=== PATIENT | female | born 1955 | race Caucasian/White ===

== ENCOUNTER 2016-10-17 06:03 | Day surgery (SDC) | payer BC ==
[~2016-10-17 06:03] MED LIST: Buffered Lidocaine 1% SYR 3ML* 3 ML/SYR SYRINGE INTRADERM ONE; Famotidine IV* 10 MG/ML 2 ML (20 mg) IV ONE
[2016-10-17] MEDS ORDERED: Famotidine IV* 10 MG/ML 2 ML (20 mg) ONE (06:47)
[2016-10-17 07:09] LABS: Hematocrit 37 % (35-47); Hemoglobin 12.2 g/dl (12.0-16.0); Mean Corpuscular HGB Conc 33 g/dl (31-36); Mean Corpuscular Hemoglobin 27 pg (27-31); Mean Corpuscular Volume 83 fL (80-97); Mean Platelet Volume 9 um3 (7.4-10.4); Red Blood Count 4.46 10^6/ul (4.0-5.4); Red Cell Distribution Width 15 % (10.5-15); White Blood Count 7.2 10^3/ul (3.5-10.8)
[2016-10-17] MEDS ORDERED: Chloroprocaine 2%* 20 ML VIAL ONE (07:47)
[2016-10-17] MEDS ORDERED: Midazolam* 1 MG/ML 5 ML VIAL (5 MG) ONE (07:48)
[2016-10-17] MEDS ORDERED: fentaNYL* 50 MCG/ML 2 ML VIAL (100 MCG VIAL) ONE (07:48)
[2016-10-17] MEDS ORDERED: Propofol* 10 MG/ML 20 ML BTL IV PUSH ONE (08:27)
[2016-10-17] MEDS ORDERED: Ketorolac INJ* 30 MG/ML 1 ML VIAL ONE (08:27)
[2016-10-17] MEDS ORDERED: Ondansetron INJ* 2 MG/ML VIAL ONE (08:27)
[2016-10-17] MEDS ORDERED: Lidocaine 2% PF * 5 ML VIAL ONE (08:27)
[2016-10-17] MEDS ORDERED: Dexamethasone IV* 4 MG/ML 1 ML (4 MG) ONE (08:27)
[2016-10-17] MEDS ORDERED: Acetaminophen TAB* 325 MG PO PRN (08:57)
[2016-10-17] MEDS ORDERED: DiMENhydriNATE IV* 50 MG/ML VIAL IV PUSH PRN (08:57)
[2016-10-17] MEDS ORDERED: Ibuprofen TAB* 600 MG PO PRN (09:00)
[2016-10-17] MEDS ORDERED: oxyCODONE/Acetamin 5/325 MG* TAB PO PRN (09:00)
--- NOTE | 2016-10-17 10:21 | OP ---
DATE OF OPERATION: 10/17/16 - [facility] DATE OF : 55 SURGEON: Talat Erazo MD ANESTHESIOLOGIST: Dr. Ellsworth ANESTHESIA: Spinal. PRE-OPERATIVE DIAGNOSIS: Postmenopausal bleeding, thickened endometrium. POST-OPERATIVE DIAGNOSIS: Postmenopausal bleeding, thickened endometrium. OPERATIVE PROCEDURE: Exam under anesthesia, dilation hysteroscopy curettage. ESTIMATED BLOOD LOSS: Minimal, less than 20 mL. SPECIMEN: Endometrial curetting. FINDINGS: Anteverted uterus sounds to 9. There was polypoid-appearing tissue protruding from the fundus. Otherwise, atrophic appearing endometrium. No adnexal masses were palpated. However, the exam is limited by habitus. DESCRIPTION OF PROCEDURE: The patient was brought to the operating room and spinal anesthesia was found to be adequate. The patient was prepped and draped in the usual sterile fashion in the dorsal lithotomy position. Time-out was performed. The exam under anesthesia was performed. A weighted speculum was placed in the vagina. The anterior lip of the cervix was visualized and grasped with a single tooth tenaculum. The cervix was gently and easily dilated with graduated Emerson dilators, and the hysteroscope was introduced with the above findings noted. The hysteroscope was removed. Endometrial curettage was performed. The polypoid- appearing tissue was removed and was sent as specimen with the endometrial curettings. The single-tooth tenaculum was removed from the anterior lip of the cervix. Excellent hemostasis was noted. All instruments were removed from the vagina, and the patient was brought to recovery room awake and in stable condition. [id number]/CPS #: [id number] MTDD
[2016-10-17 10:38] VITALS: BP 156/64
== END 2016-10-17 11:08 | disposition home or self-care (01) ==
LOC: OR 06:03
PROVIDERS: ATTEND Obstetrics & Gynecology
DX: N95.0 Postmenopausal bleeding (principal); E11.9 Type 2 diabetes mellitus without complications; K21.9 Gastro-esophageal reflux disease without esophagitis; J45.909 Unspecified asthma, uncomplicated; Z88.5 Allergy status to narcotic agent; I10 Essential (primary) hypertension; M19.90 Unspecified osteoarthritis, unspecified site
CPT/HCPCS: 36415; 85027; 86850; 86900; 86901; 88305; J1100; J1885; J2250; J2400; J2405; J2704; J3010

== ENCOUNTER 2016-12-08 11:46 | Emergency (ER) | payer BC ==
[2016-12-08 12:41] VITALS: BP 169/87
--- NOTE | 2016-12-08 13:00 | UC ---
Federico Dale Matthew, scribed for Jamie Shay MD on 12/08/16 at 1225 . Dizzy HPI HPI Summary: In Room Note: A 61 y/o female presents to with intermittent dizziness since a week ago. She's had constant dizziness since 05:30 this morning, when she awoke; however, she is not currently dizzy. The dizziness is described as the room spinning and causes an unsteady gait. Associated symptoms include headache , sinus discomfort, rhinorrhea, occasional tinnitus and nausea. The patient's dizziness worse with head movement. The patient has never had this dizziness before. 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 She denies abdominal pain. She's had migraines in the past, but states the headache is not similar. The patient's states she's concerned its her blood pressure, diabetes, or sinus discomfort. The patient is able to ambulate in the exam room. No recent car accident. FHx of prostate CA, CHF, and RI. The patient has not been hospitalized. She was last seen in her PCP a month ago. She had a D&C a month ago. Note: 61 y/o female, diabetic type II, primary HTN, GERD presents with c/o of head pressure, dizziness and nausea Nurse's Note: FOR ABOUT A WEEK PT HAS BEEN DIZZY OFF AND ON, PT ALSO HAS BEEN HAVING HEADAHCES AND NAUSEA AND SHE IS CONCERNED IT COULD BE HER BLOOD PRESSURE OR DIABETES OR POSSIBLE SINUS INFECTION. - History Of Current Complaint Chief Complaint: UCGeneralIllness Stated Complaint: DIZZY NAUSEA HEAD PRESSURE Time Seen by Provider: 12/08/16 12:09 Hx Obtained From: Patient ?: No Onset/Duration: Lasting Days, Still Present Timing: Intermittent Episode Lasting Severity Initially: Mild Severity Currently: Mild Pain Intensity: 7 Pain Scale Used: 0-10 Numeric Character: Room Spinning Aggravating Factor(s): Change In Head Position Alleviating Factor(s): Nothing Associated Signs And Symptoms: Positive: Nausea, Tinnitus - occasional, Unsteady Gait. Negative: Visual Changes - Allergies/Home Medications Allergies/Adverse Reactions: Allergies Allergy/AdvReac Type Severity Reaction Status Date / Time Acetaminophen [From Ultracet] Allergy Vomiting Verified 12/08/16 11:57 Tramadol [From Ultracet] Allergy Vomiting Verified 12/08/16 11:57 Codeine AdvReac Intermediate Vomiting Verified 12/08/16 11:57 Hydrocodone AdvReac Intermediate Vomiting Verified 12/08/16 11:57 PMH/Surg Hx/FS Hx/Imm Hx Endocrine History Of: Reports: Diabetes - TYPE 2-ON ORAL MEDICATION FOR Cardiovascular History Of: Reports: Hypertension - ON MEDICATION FOR Respiratory History Of: Reports: Asthma - YHx OF, NO MEDS Neurological History Of: Reports: Migraine - INTERMITENT, NONE IN RECENT YEARS - Surgical History Surgical History: None Surgery Procedure, Year, and Place: 1999 deviated septum [facility]. 2013 LT & RT HANDS , TRIGGER FINGER [facility]. 2012 LT & RT CARPAL TUNNEL RELEASE [facility]. 1999 RIGHT SHOULDER REPAIR [facility] - Social History Alcohol Use: None Substance Use Type: None Smoking Status (MU): Former Smoker Type: Cigarettes Amount Used/How Often: 1/2 PPD X 3 YEARS Have You Smoked in the Last Year: No When Did the Patient Quit Smoking/Using Tobacco: 35 YEARS AGO Review of Systems Constitutional: Negative Skin: Negative Eyes: Negative ENT: Other - sinus discomfort; occasional tinnitus Respiratory: Negative Cardiovascular: Negative Gastrointestinal: Other - nausea Genitourinary: Negative Motor: Negative Neurovascular: Negative Musculoskeletal: Negative Neurological: Headache, Other - Dizziness - described as the room spinning Psychological: Negative All Other Systems Reviewed And Are Negative: Yes Physical Exam Triage Information Reviewed: Yes Appearance: No Pain Distress, Well-Nourished Vital Signs: Initial Vital Signs Temp 98.6 F 12/08/16 11:51 Pulse 84 12/08/16 11:51 Resp 20 12/08/16 11:51 BP 173/82 12/08/16 11:51 Pulse Ox 98 12/08/16 11:51 Vital Signs Reviewed: Yes Eyes: Positive: Other: - 2-3 BEATS OF LATERAL NYSTAGMUS BILATERALLY, PERRL, EMOI ENT: Positive: Hearing grossly normal, Pharynx normal, TMs normal. Negative: Muffled/hoarse voice Neck: Positive: Supple, Nontender, Other: - No Bruits Respiratory: Positive: Chest non-tender, Lungs clear, Normal breath sounds Cardiovascular: Positive: RRR, No Murmur Abdomen Description: Positive: Nontender, No Organomegaly, Soft Musculoskeletal: Positive: Strength Intact, ROM Intact Neurological Exam: Normal - Cranial nerves II-XII intact; normal gait, heel to toe normal, negative romberg test; no field cut; no visual complaints Neurological: Positive: Alert Psychological: Positive: Age Appropriate Behavior Skin Exam: Normal Dizzy Course/Dx - Course Course Of Treatment: Although this patient does have diabetes and HTN, the cause of her dizziness appears to be vertigo rather than a cardiovascular event. The vertigo may have been instigated by sinus infection and congestion. Her physical exam is remarkable for a normal neurological exam and the instigation of her dizziness with rotation of the head. She has no ear complaints and does not report any SOB or chest pain. Orthostatic measurements showed non-drop in blood pressure and minimal increase in pulse rate from supine to standing. Her BG was not obtainable. I will start the patient on medication for her sinuses and for vertigo. She will follow-up with her physician with a call tomorrow. DOCUMENTATION NOTES: Medications have been included in the original chart and reviewed. Elevated BP but has current hypertension diagnosis - Differential Dx/Diagnosis Differential Diagnosis/HQI/PQRI: Benign Paroxysmal Positional Vertigo, Dysrhythmia, Labyrinthitis, Transient Ischemic Attack Provider Diagnoses: 1. vertigo. 2. sinus congestion/infection. 3. HTN, DM by hx. Discharge - Discharge Plan Condition: Stable Disposition: HOME Prescriptions: Azithromycin TAB* [Zithromax TAB*] 250 mg PO DAILY #6 tab Meclizine HCl [Meclizine 25] 25 mg PO QID #12 tab MDD 4 a day Patient Education Materials: Sinusitis (ED), Benign Paroxysmal Positional Vertigo (ED) Referrals: Joycelyn Orozco MD [Primary Care Provider] - Additional Instructions: WE DISCUSSED: You have vertigo. You have sinusitis. Take Zithromax and see instructions below. Take meclizine for vertigo. This may cause drowsiness. Call you doctor tomorrow. COUGH, CONGESTION of CHEST, SINUSES OR EARS: The most important goal is to liquefy all the phlegm and get it out of your head and chest. Any illness causing cough, congestion, sore throat or sinus discomfort can be helped by doing the following: STAND UNDER SHOWER STREAM TO LOOSEN SECRETIONS. STAY AWAY FROM ANY SMOKE OR IRRITANTS. WHAT ELSE CAN HELP RELIEVE YOUR SYMPTOMS: GENERAL TYPES OF MEDICINE THAT MAY HELP DECONGESTANTS: helps relieve stuffiness and clears sinuses. Pseudoephedrine ( Sudafed or generic) is effective but you need to ask the pharmacist for it because it may be kept behind the counter. ANTIHISTAMINES: are NOT helpful in many colds and flus because they can worsen sore throat, dry eyes and mouth and cause drowsiness. Examples are diphenhydramine, doxylamine and chlorpheniramine. They can help dry you out if you are having profuse, clear drainage from the nose. EXPECTORANTS: helps thin mucous in the nose and chest, making it easier to clear the fluid out. Expectorants are in most combination cough/cold remedies and should be taken with plenty of water. Guaifenesin is the most common expectorant and it comes in pill or liquid form. Mucinex is an extended release form of guaifenesin. COUGH SUPPRESANT: reduces the body's cough reflex. Dextromethorphan is in over the counter products, but sometimes narcotics such as codeine or hydrocodone are used to suppress cough. SPECIFIC MEDICATIONS: The most important goal is to liquefy all the phlegm and get it out of your head and chest: The following medicines (in prescription form or you can buy them without prescription) may help: To help with cough: DEXTROMETHORPHAN (Vicks, Robitussin, Nyquil and other brands) To help break up phlegm: GUAIFENESIN (Mucinex, Robitussin, other brands) To help clear congestion: PSEUDOEPHEDRINE (Sudafed, Dimetapp, other brands) TRY TO CLEAR NOSE: AFRIN NASAL SPRAY: 2-3 SPRAYS PER NOSTRIL, TWICE A DAY FOR TWO DAYS ONLY. USEFUL WAYS TO FEEL BETTER WITHOUT MEDICATIONS: STAND UNDER SHOWER STREAM TO LOOSEN SECRETIONS. USE A VAPORIZOR. STAY AWAY FROM ANY SMOKE OR IRRITANTS. USE SALINE NASAL SPRAY TO KEEP FLOW OF MUCOUS FROM NOSTRILS AND SINUSES. CONSIDER USING NETI POT TO HELP WITH ALLERGIES AND CONGESTION IN THE NOSE. USE THIS THREE TIMES A WEEK. YOU CAN GET THIS AT [facility] IN [place] OR VARIOUS DRUGSTORES. DRINK LOTS OF WARM FLUIDS USEFUL HOME REMEDIES: WARM WATER GARGLES, WITH TSP OF SALT PER 8 OUNCES OF WATER, GARGLE FOR A FEW SECONDS AND SPIT OUT; GARGLE AND SPIT OUT; EVERY THREE HOURS. AND/OR: WARM WATER OR TEA, HONEY AND LEMON; 2-3 CUPS A DAY. FOR SORE THROAT: KEEP THROAT MOIST WITH LOZENGES; TEA AND HONEY. USE WARM WATER GARGLES 3-4 TIMES A DAY. FOLLOW UP: RE-CHECK IN 1O DAYS, NEEDED, IF YOU ARE NOT IMPROVING. RETURN HERE OR SEE YOUR PHYSICIAN. RE-CHECK SOONER IF INCREASED PAIN OR TEMPERATURE. Thank you for helping us improve patient care by filling out the [facility]. The documentation as recorded by the Federico dwyer Matthew accurately reflects the service I personally performed and the decisions made by me, Jamie Shay MD.
== END 2016-12-08 13:08 | disposition home or self-care (01) ==
LOC: UCEAST 11:46
DX: R42 Dizziness and giddiness (principal); R09.81 Nasal congestion; I10 Essential (primary) hypertension; E11.9 Type 2 diabetes mellitus without complications; Z88.6 Allergy status to analgesic agent; Z88.5 Allergy status to narcotic agent; J45.909 Unspecified asthma, uncomplicated; Z87.891 Personal history of nicotine dependence
CPT/HCPCS: 99212; G0463

== ENCOUNTER 2017-07-05 11:40 | Emergency (ER) | payer BC ==
[2017-07-05 12:01] VITALS: BP 158/64
--- NOTE | 2017-07-05 12:25 | UC ---
Throat Pain/Nasal Walker HPI - HPI Summary HPI Summary: 2 days for sore throat swollen gland R>L, - History of Current Complaint Chief Complaint: UCRespiratory Stated Complaint: SORE THROAT EAR PAIN SINUS ISSUE SWOLLEN GLAND Time Seen by Provider: 07/05/17 12:23 Hx Obtained From: Patient ?: No Onset/Duration: Sudden Onset, Lasting Days - 2 Severity: Moderate Pain Intensity: 5 Cough: None Associated Signs & Symptoms: Positive: Negative - Allergies/Home Medications Allergies/Adverse Reactions: Allergies Allergy/AdvReac Type Severity Reaction Status Date / Time Tramadol [From Ultracet] Allergy Vomiting Verified 12/08/16 11:57 Codeine AdvReac Intermediate Vomiting Verified 12/08/16 11:57 Hydrocodone AdvReac Intermediate Vomiting Verified 12/08/16 11:57 Home Medications: Home Medications Pioglitazone TAB* [Actos TAB*] 07/05/17 [History] PMH/Surg Hx/FS Hx/Imm Hx Previously Healthy: No Endocrine History: Diabetes Cardiovascular History: Hypertension GI/ History: Gastroesophageal Reflux - Surgical History Surgical History: None Surgery Procedure, Year, and Place: 1999 deviated septum [facility]. 2013 LT & RT HANDS , TRIGGER FINGER [facility]. 2012 LT & RT CARPAL TUNNEL RELEASE [facility]. 1999 RIGHT SHOULDER REPAIR [facility] - Family History Known Family History: Positive: None - Social History Occupation: Employed Full-time Lives: With Family Alcohol Use: None Substance Use Type: None Smoking Status (MU): Former Smoker Type: Cigarettes Amount Used/How Often: 1/2 PPD X 3 YEARS Have You Smoked in the Last Year: No When Did the Patient Quit Smoking/Using Tobacco: 35 YEARS AGO Review of Systems Constitutional: Chills, Fatigue Skin: Negative Eyes: Negative ENT: Sore Throat Respiratory: Negative Cardiovascular: Negative Gastrointestinal: Negative Genitourinary: Negative Motor: Negative Neurovascular: Negative Musculoskeletal: Negative Neurological: Negative Psychological: Negative Is Patient Immunocompromised?: No All Other Systems Reviewed And Are Negative: Yes Physical Exam Triage Information Reviewed: Yes Appearance: Well-Appearing, No Pain Distress, Obese Vital Signs: Initial Vital Signs Temp 97 F 07/05/17 11:58 Pulse 95 07/05/17 11:58 Resp 16 07/05/17 11:58 BP 158/64 07/05/17 11:58 Pulse Ox 98 07/05/17 11:58 Vital Signs Reviewed: Yes Eye Exam: Normal Eyes: Positive: Conjunctiva Clear ENT Exam: Normal ENT: Positive: Normal ENT inspection, Hearing grossly normal, Pharyngeal erythema, TMs normal, Uvula midline. Negative: Nasal congestion, Nasal drainage , Tonsillar swelling, Tonsillar exudate, Trismus, Muffled voice, Hoarse voice, Sinus tenderness Dental Exam: Normal Neck exam: Normal Neck: Positive: Supple, Nontender, Enlarged Nodes @ - Righ anterior cervical > Left Respiratory Exam: Normal Respiratory: Positive: Chest non-tender, Lungs clear, Normal breath sounds, No respiratory distress, No accessory muscle use Cardiovascular Exam: Normal Cardiovascular: Positive: RRR, No Murmur, Pulses Normal, Brisk Capillary Refill Musculoskeletal Exam: Normal Musculoskeletal: Positive: Strength Intact, ROM Intact, No Edema Neurological Exam: Normal Neurological: Positive: Alert, Muscle Tone Normal Psychological Exam: Normal Skin Exam: Normal Diagnostics - Laboratory Diagnostic Studies Completed/Ordered: RST (+) Throat Pain/Nasal Course/Dx - Course Assessment/Plan: Augmentin, increase fluids, no face kissing and good hand washing follow with PCP in 1 week or sooner if sx fail to resolve or worsen - Differential Dx/Diagnosis Provider Diagnoses: Hypertension in poor control, Strep Pharyngitis Discharge - Discharge Plan Condition: Stable Disposition: HOME Prescriptions: Amoxicillin/Clavulanate TAB* [Augmentin TAB 875*] 875 mg PO BID #20 tab Patient Education Materials: DASH Eating Plan (ED), Hypertension (ED), Strep Throat (ED) Referrals: Joycelyn Orozco MD [Primary Care Provider] - 1 Week
== END 2017-07-05 12:38 | disposition home or self-care (01) ==
LOC: UCEAST 11:40
DX: J02.0 Streptococcal pharyngitis (principal); I10 Essential (primary) hypertension; E11.9 Type 2 diabetes mellitus without complications; Z87.891 Personal history of nicotine dependence; Z88.5 Allergy status to narcotic agent
CPT/HCPCS: 87651; 99212; G0463